=== PATIENT | female | born 1960 | race African-American/Black ===

== ENCOUNTER 2020-10-18 10:19 | Emergency (ER) | payer OTHER ==
[~2020-10-18] VITALS: Ht 167.6 cm; Wt 59.0 kg
--- NOTE | ~2020-10-18 | EMS ---
[facility] [address] [place] [address] EMS Patient Care Report Name: DIANA STATON Room #: REG WILL Sharma#: [id number] Admission: 10/18/20 Attend Phys: Discharge: Date of : 58 Report #: [id number] THIS REPORT FOR: //name// Report Transmitted: 10/18/2020 11:43 EMS Care Summary [facility] Incident [id number] @ 10/18/2020 09:34 Incident Location [address] [place] [address] Patient DIANA STATON Female, 59 Years 1960 Patient Address [address] [place] [id number] Patient History Congestive Heart Failure (CHF),Hypertension (HTN), Patient Allergies No known allergies, Patient Medications None Reported, Chief Complaint I just feel tired. Disposition Transported No Lights/[place] Reason Sick Person Transported To [facility] Narrative HISTORY. EMS activated by coworkers after they assessed the pts blood pressure and found it to be extremely elevated. Pt states while at work she began to feel weak/tired. This pt. does have a history of HTN, but took herself off her [address] [address] EMS Patient Care Report Name: DIANA STATON Room #: REG WILL Sharma#: [id number] Admission: 10/18/20 Attend Phys: Discharge: Date of : 58 Report #: [id number] medications over a year ago. Pt did not tell her doctor that she stopped taking her medication for her blood pressure. Upon our arrival pt. is sitting upright on a chair. No apparent distress. Pt denies any headache, blurred vision or chest pain. ASSESSMENT INDICATED IN CHART. ECG, 12L =NSR. Amalia is negative. LVO not performed. TREATMENT. Pt is able to stand and pivot onto EMS cot/unit. Look to chart for additional. Pt remains stable, alert and without complaint. TRANSPORT. [facility] is destination. [facility] is contacted. Information is given. VS are monitored. Pts BP remains elevated. No other complaints. DISPOSITION. Pt is able to slide herself from EMS cot to ED bed. Report and pts personal items are given to nursing. M 1143 is clear. Initial Vitals @10:05P: 86,SpO2: 100,[place] Suspected: false @PTAP: 85,R: 16,BP: 213/114,Pain: 0/10,SpO2: 99, @10:13P: 87,R: 16,BP: 218/117,Pain: 0/10,GCS: 15,SpO2: 100,Revised Trauma: 12,[place] Suspected: false @PTAP: 96,R: 18,BP: 218/130,Pain: 0/10,GCS: 15,SpO2: 100,Revised Trauma: 12, @09:59P: 91,R: 16,BP: 226/120,Pain: 0/10,GCS: 15,Temp: 97.6F,SpO2: 99,Revised Trauma: 12,[place] Suspected: false Assessments @09:50MENTAL:Person Oriented,Time Oriented,Place Oriented,Event Oriented,SKIN:HEENT:LUNG SOUNDS:ABDOMEN:PELVIS//GI:EXTREMITIES:Left Arm: No Abnormalities,Right Arm: No Abnormalities,Left Leg: No Abnormalities,Right Leg: No Abnormalities,PULSE:Radial: 2+ Normal,NEURO: Impression Hypertension Procedures @10:0512-Lead ECGResponse: UnchangedSucceeded@10:04Saline Lock 10cc (20 ga) Site: Hand-LeftResponse: UnchangedSucceeded@10:00Saline Lock cc (20 ga) Site: Antecubital-RightResponse: UnchangedFailed Timeline 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,BP: 213/114 M,PULSE: 85,RR: 16 R,SPO2: 99 Ox,ETCO2: ,BG: ,PAIN: 0,GCS: , 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,BP: 218/130 M,PULSE: 96,RR: 18 R,SPO2: 100 Ox,ETCO2: ,BG: ,PAIN: 0,GCS: 15, 09:33,Call Received 09:33,Psap Call 09:34,Dispatched [facility] [address] [place] [address] EMS Patient Care Report Name: DIANA STATON Room #: JOHANNA Sharma#: [id number] Admission: 10/18/20 Attend Phys: Discharge: Date of : 58 Report #: [id number] 09:34,En Route 09:47,On Scene 09:49,At Patient 09:59,BP: 226/120 M,PULSE: 91,RR: 16 R,SPO2: 99 Ox,ETCO2: ,BG: ,PAIN: 0,GCS: 15, 10:00,Saline Lock cc 20 ga Site: Antecubital-Right,Response: UnchangedFailed, 10:04,Saline Lock 10cc 20 ga Site: Hand-Left,Response: UnchangedSucceeded, 10:05,12-Lead ECG,Response: UnchangedSucceeded, 10:05,BP: / M,PULSE: 86,RR: R,SPO2: 100 Ox,ETCO2: ,BG: ,PAIN: ,GCS: , 10:05,Depart Scene 10:13,BP: 218/117 M,PULSE: 87,RR: 16 R,SPO2: 100 Ox,ETCO2: ,BG: ,PAIN: 0,GCS: 15, 10:15,At Destination 10:36,Call Closed Disclaimer v1.1 Copyright 2020 [employer] This EMS Care Summary contains data elements from the applicable legal record (which may be displayed differently). It is designed to provide pertinent information for the following purposes: continuity of care, clinical quality, and state data reporting. The complete legal record is available to ED staff and administrators of the receiving hospital in [employer] Patient Tracker. All data is provided "as is."
[2020-10-18] MEDS ORDERED: NOHOMEMEDICATIONS (10:27)
[2020-10-18 10:54] LABS: ABSOLUTE NEUTROPHILS 3.2 thou/uL (1.4-8.2); BASOPHILS 0.7 % (0.0-2.0); EOSINOPHILS 1.7 % (0.0-3.0); HEMATOCRIT 38.1 % (37.0-47.0); HEMOGLOBIN 12.6 gm/dL (12.0-15.0); LYMPHOCYTES 28.9 % (24.0-44.0); MCH 31.7 pg (26.0-34.0); MCHC 33.1 g/dL (28.0-37.0); MCV 95.7 fL (80.0-100.0); MONOCYTES 7.7 % (1.0-8.0); PLATELET COUNT 306 thou/uL (150-400); RBC 3.98 mil/uL (4.20-5.00); RDW 13.4 % (10.5-14.5); WBC 5.3 thou/uL (4.0-11.0)
[2020-10-18 11:08] LABS: ANION GAP 12 mmol/L (7-16); BUN 11 mg/dL (7-18); CALCIUM 9.4 mg/dL (8.5-10.1); CHLORIDE 106 mmol/L (98-107); CO2 24 mmol/L (21-32); CREATININE 0.7 mg/dL (0.6-1.0); GLUCOSE 91 mg/dL (74-106); POTASSIUM 3.7 mmol/L (3.5-5.1); SODIUM 142 mmol/L (136-145)
[2020-10-18 11:17] LABS: ALBUMIN 3.9 g/dL (3.4-5.0); SGOT 22 U/L (15-37); SGPT 21 U/L (14-59); TOTAL BILIRUBIN 0.5 mg/dL (0.2-1.0); TOTAL PROTEIN 7.7 g/dL (6.4-8.2); TROPONIN-I <0.06 ng/mL (<0.06)
--- NOTE | 2020-10-18 12:26 | EKG ---
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 : 1960 Requested By: Toni Crow Order Number: [id number] MD: Bossman Sam Measurements Intervals [place] Rate: 80 P: 64 RI: 165 QRS: 28 QRSD: 78 T: 22 QT: 398 QTc: 460 Interpretive Statements Sinus rhythm LAE, consider biatrial enlargement RSR' in V1 or V2, probably normal variant Left ventricular hypertrophy No previous ECG available for comparison Electronically Signed On 10-18-2020 12:26:23 CDT by Bossman Sam [email or web address] <ELECTRONICALLY SIGNED> By: Bossman Sam MD, [facility] 10/18/20 1226 1034 1034 Bossman Sam MD, FACC /EPI
[2020-10-18] MEDS ORDERED: NORVASC5 MG PO (12:32)
[2020-10-18 12:36] VITALS: BP 194/96
== END 2020-10-18 12:36 | disposition home or self-care (01) ==
LOC: ER 10:19
PROVIDERS: Emergency Medicine
DX: I10 Essential (primary) hypertension (principal)